=== PATIENT | male | born 1975 | race Caucasian/White ===

== ENCOUNTER 2017-07-08 13:40 | Emergency (ER) | payer SELFPAY ==
[~2017-07-08] VITALS: Ht 170.2 cm; Wt 70.0 kg
[2017-07-08] MEDS ORDERED: PHEN100C4 PO (13:43)
[2017-07-08 15:27] LABS: HEMATOCRIT 42.3 % (42.0-52.0); HEMOGLOBIN 14.4 g/dL (14.0-18.0); MEAN CORPUSCULAR HEMOGLOBIN 33.1 pg (28.0-32.0); MEAN CORPUSCULAR VOLUME 97.6 fL (80.0-94.0); PLATELET 228 x1000/uL (130-400); RED BLOOD CELL COUNT 4.33 mill/uL (4.7-6.1); RED CELL DISTRIBUTION WIDTH 13.3 % (11.6-14.6)
[2017-07-08 15:40] LABS: CARBON DIOXIDE 26 mEq/L (21-32); CHLORIDE 107 mEq/L (98-107)
[2017-07-08] MEDS ORDERED: PHENYTOIN SODIUM 1,000 MG in SODIUM CHLORIDE 0.9% 100 ML IV ONE (17:45)
[2017-07-08 19:12] VITALS: BP 105/68
== END 2017-07-08 19:16 | disposition home or self-care (01) ==
LOC: ER 13:48
DX: G40.409 Other generalized epilepsy and epileptic syndromes, not intractable, without status epilepticus (principal)
CPT/HCPCS: 36415; 80048; 80185; 85027; 96365; 99284; J1165; J7030; Z7610; J7050

== ENCOUNTER 2020-12-29 15:40 | Emergency (ER) | payer MEDICAID ==
[~2020-12-29] VITALS: Ht 167.6 cm; Wt 66.0 kg
[~2020-12-29 15:40] MED LIST: PHEN100C4 PO
[2020-12-29] MEDS ORDERED: ONDANSETRON HCL 4MG/2ML INJ IV STA (15:53)
[2020-12-29] MEDS ORDERED: SODIUM CHLORIDE 0.9% 1,000 ML IV ONE (16:00)
[2020-12-29 16:22] LABS: BASOPHILS % 0.9 % (0.0-2.0); EOSINOPHILS % 3.4 % (0.0-5.0); HEMOGLOBIN. 15.3 g/dL (14.0-18.0); LYMPHOCYTES % 22.7 % (20.0-50.0); MEAN CORPUSCULAR HEMOGLOBIN 33.1 pg (28.0-32.0); MEAN CORPUSCULAR VOLUME 99.6 fL (80.0-94.0); MEAN PLATELET VOLUME 7.4 fl (7.4-10.4); MONOCYTES % 6.7 % (2.0-8.0); NEUTROPHILS % 66.3 % (40.0-76.0); PLATELET 237 x1000/uL (130-400); RED BLOOD CELL COUNT 4.62 mill/uL (4.7-6.1); RED CELL DISTRIBUTION WIDTH 13.6 % (11.6-14.6)
[2020-12-29 16:28] LABS: CHLORIDE 105 mEq/L (98-107)
[2020-12-29 16:32] LABS: ETHANOL BLOOD < 10 mg/dL
[2020-12-29 16:35] LABS: PROTHROMBIN TIME 10.8 sec (9.6-11.0)
[2020-12-29] MEDS ORDERED: PHENYTOIN SODIUM 1,000 MG in SODIUM CHLORIDE 0.9% 100 ML IV ONE (17:00)
[2020-12-29] MEDS ORDERED: ACETAMINOPHEN 325MG TABLET PO ONE (22:00)
[2020-12-29 22:30] VITALS: BP 116/69
== END 2020-12-29 22:45 | disposition home or self-care (01) ==
LOC: ER 15:42
DX: S09.8XXA Other specified injuries of head, initial encounter (principal); S01.512A Laceration without foreign body of oral cavity, initial encounter; R84.2 Abnormal level of other drugs, medicaments and biological substances in specimens from respiratory organs and thorax; E87.6 Hypokalemia; R73.9 Hyperglycemia, unspecified; D72.819 Decreased white blood cell count, unspecified; X58.XXXA Exposure to other specified factors, initial encounter; Y93.9 Activity, unspecified; Y92.89 Other specified places as the place of occurrence of the external cause; Y99.0 Civilian activity done for income or pay
CPT/HCPCS: 36415; 70450; 80053; 80185; 80320; 82542; 85025; 85610; 93005; 96361; 96365; 96366; 96375; 99285; J1165; J2405; J7030; J7050; Z7610; G0480

== ENCOUNTER 2021-01-05 07:35 | Emergency (ER) | payer MEDICAID ==
[~2021-01-05] VITALS: Ht 162.6 cm; Wt 66.0 kg
[2021-01-05] MEDS ORDERED: ACETAMINOPHEN 325MG TABLET PO ONE (08:15)
[2021-01-05] MEDS ORDERED: KETOROLAC 60MG/2ML VIAL IM ONE (08:30)
[2021-01-05] MEDS ORDERED: TOPUD MT (09:57)
[2021-01-05 10:50] VITALS: BP 122/70
== END 2021-01-05 12:08 | disposition home or self-care (01) ==
LOC: ER 07:35
DX: R51.9 Headache, unspecified (principal); R42 Dizziness and giddiness; M79.632 Pain in left forearm
CPT/HCPCS: 96372; 99283; J1885